=== PATIENT | female | born 1975 | race Hispanic/Latino ===

== ENCOUNTER → 2017-10-25 | Day surgery (SDC) | payer OTHER ==
[~2017-10-25] VITALS: Ht 157.5 cm; Wt 86.2 kg
--- NOTE | 2017-10-25 12:19 | Operative Report ---
Operative/Inv Procedure Report Surgery Date: 10/25/17 Name of Procedure: Revision bilateral reconstructed breasts Pre-Operative Diagnosis: Fullness laterally bilaterally following breast reconstruction cosmetically unacceptable appearance of the lateral chest wall bilaterally Post-Operative Diagnosis: Same Estimated Blood Loss: 50ml to 100ml Surgeon/Business Systems Administrator: Elan Heart MD Anesthesia: laryngeal mask airway Operative/Procedure Note Note: Patient was counseled regards to the procedure the alternatives the risks and expected outcomes as relates to request for surgical intervention to treat the outcome following bilateral breast reconstruction secondary to breast cancer. The patient has excess fullness in regards to skin and subcutaneous tissue as it overlies the implant anteriorly as well as extension into the lateral chest. We talked about excision of these tissues. We talked about the risks including but not limited to infection bleeding pain numbness need for explantation unsightly or symptomatic scar and persistent asymmetry and fullness. Once agreed the patient signed informed consent. Took her to the operating room after marking her in the standing position. Venodyne boots were placed general anesthesia was established intravenous antibiotics given the chest was prepped and draped in usual sterile fashion. The elliptical incision was deepened through skin subcutaneous tissue and completely removed. The wound was made hemostatic irrigated and closed in multiple layers. Proximal mid length of 20 cm plus in each side.
== END ==
LOC: STS 02:42
DX: Z85.3 Personal history of malignant neoplasm of breast (principal); N64.89 Other specified disorders of breast; G47.33 Obstructive sleep apnea (adult) (pediatric); K21.9 Gastro-esophageal reflux disease without esophagitis; Z86.718 Personal history of other venous thrombosis and embolism
CPT/HCPCS: 93005; 93010; J0131; J0171; J0690; J2001; J2250